=== PATIENT | female | born 2005 | race Caucasian/White ===

== ENCOUNTER 2024-05-03 14:14 | Outpatient (CLI) | payer OTHER, SELFPAY ==
--- NOTE | ~2024-05-03 | XR_ITS ---
3 VIEWS MANDIBLE Ordering provider: Ivon Graff APRN History: . [id number] JAW POPPEDOUT OF PLACE 05/02/24 RT SIDE PAIN . Comparison: None. FINDINGS: BONES: No acute fracture or dislocation. TEMPOROMANDIBULAR JOINTS: Normal. SOFT TISSUES: Normal. IMPRESSION: NO ACUTE OSSEOUS ABNORMALITY OF THE MANDIBLE. If still clinically suspicious CT or MRI is advised. Reviewed, dictated and finalized at location A.
== END 2024-05-03 14:15 | disposition home or self-care (01) ==
LOC: ANHIMG 14:19
PROVIDERS: PCP Family Medicine; Visit Provider Nurse Practitioner Adult Health
DX: S03.01XA Dislocation of jaw, right side, initial encounter (principal); X58.XXXA Exposure to other specified factors, initial encounter
CPT/HCPCS: 70110

== ENCOUNTER 2024-06-19 11:01 | Outpatient (CLI) | payer OTHER, BC, SELFPAY ==
--- NOTE | ~2024-06-19 | CT_ITS ---
EXAMINATION: CT facial bones wo con DATE: 06/19/2024 11:19 INDICATION: Arthralgia of the temporomandibular joint. TECHNIQUE: Computed tomography (CT) of the facial bones and maxillofacial region was performed withou t intravenous contrast. Automated exposure control and iterative reconstruction technique were employ ed. The dose-length product was 273.83 mGy-cm. COMPARISON: Mandible radiographs 05/03/2024 FINDINGS: Alignment is normal. No fracture. The temporomandibular joints are normal. The paranasal si nuses are clear. The orbits are normal. The mastoid air cells are normal. IMPRESSION: 1. Normal temporomandibular joints. Reviewed, dictated and finalized at location A. NG HANGER
== END 2024-06-19 11:02 | disposition home or self-care (01) ==
PROVIDERS: PCP Family Medicine; Visit Provider Nurse Practitioner Adult Health
DX: M26.629 Arthralgia of temporomandibular joint, unspecified side (principal)
CPT/HCPCS: 70486